=== PATIENT | male | born 1960 | race Caucasian/White ===

== ENCOUNTER 2021-11-29 02:55 | Emergency (ER) | payer MEDICARE ==
[2021-11-29 03:05] VITALS: RESP 18
--- NOTE | 2021-11-29 03:05 | ED ---
Chest Pain HPI - General Stated Complaint: Chest pain Time Seen by Provider: 11/29/21 02:56 Source: RN notes reviewed, old records reviewed Mode of arrival: EMS Limitations: no limitations - History of Present Illness Initial Comments: This is a 61-year-old male presenting with significant distress. Patient's main complaints relating to abdominal pain chest pain with a sudden onset of severe shortness of breath this shortness of breath cause patient to have some significant pain throughout his entire body. Pain is been episodic since it began but is currently improved. Patient is very emotional during history taking tearful a significant amount of the time. Currently remains asymptomatic MD Complaint: chest pain, other (She significant shortness of breath starting tonight) -: hour(s) Onset: during rest, awoke with symptoms Pain Location: substernal, epigastric Severity: moderate Severity scale (1-10): 6 Quality: sharp Consistency: intermittent Improves With: nothing Worsens With: nothing Context: recent surgery, trauma/injury Anginal Symptoms: dyspnea, sense of impending doom Other Symptoms: palpitations Treatments Prior to Arrival: none - Related Data Allergies Allergy/AdvReac Type Severity Reaction Status Date / Time No Known Allergies Allergy Verified 11/29/21 04:32 Review of Systems ROS Statement: Those systems with pertinent positive or pertinent negative responses have been documented in the HPI. ROS Other: All systems not noted in ROS Statement are negative. EKG Findings - EKG Comments: EKG Findings:: EKG is sinus rhythm 95 IA 176 QRS 86 QTc 409 General Exam General appearance: alert, anxious Head exam: Present: atraumatic, normocephalic, normal inspection Eye exam: Present: normal appearance, PERRL, EOMI. Absent: scleral icterus, conjunctival injection, periorbital swelling ENT exam: Present: normal exam, mucous membranes moist Neck exam: Present: normal inspection. Absent: tenderness, meningismus, lymphadenopathy Respiratory exam: Present: normal lung sounds bilaterally. Absent: respiratory distress, wheezes, rales, rhonchi, stridor Cardiovascular Exam: Present: normal rhythm, tachycardia, normal heart sounds. Absent: systolic murmur, diastolic murmur, rubs, gallop, clicks GI/Abdominal exam: Present: soft, normal bowel sounds. Absent: distended, tenderness, guarding, rebound, rigid Extremities exam: Present: normal inspection, full ROM, normal capillary refill. Absent: tenderness, pedal edema, joint swelling, calf tenderness Back exam: Present: normal inspection Neurological exam: Present: alert, oriented X3, CN II-XII intact Psychiatric exam: Present: normal affect, normal mood Skin exam: Present: warm, dry, intact, normal color. Absent: rash Course Vital Signs 11/29/21 11/29/21 02:56 06:34 Pulse Rate 107 H 86 Respiratory 18 18 Rate Blood Pressure 113/88 107/82 O2 Sat by Pulse 95 96 Oximetry - Reevaluation(s) Reevaluation #1: 11/29/21 05:45 Medical record is reviewed Reevaluation #2: 11/29/21 05:45 Patient has no recurrent events here in the ER A patient is informed results questions answered and is okay for discharge Chest Pain MDM - MDM 61 male to the emergency department for evaluation. Patient presents today for evaluation of likely medication reaction. Patient has normal studies. Patient can be discharged home Disposition Clinical Impression: Abdominal pain, Medication reaction Disposition: HOME SELF-CARE Condition: Good Instructions (If sedation given, give patient instructions): Tamsulosin (By mouth), Abdominal Pain (ED) Is patient prescribed a controlled substance at d/c from ED?: No Referrals: Anthony Robin DO [Primary Care Provider] - 1-2 days
--- NOTE | 2021-11-29 03:21 | XR ---
EXAMINATION TYPE: XR chest 1V DATE OF EXAM: 11/29/2021 COMPARISON: NONE HISTORY: Weakness TECHNIQUE: 2 views FINDINGS: There is coarsening of interstitial markings in the lower lung pickett. There is no heart fa ilure. There is minimal pleural reaction lateral right lung base. There are no hilar masses. IMPRESSION: Pleural reaction or fluid at the right lung base. No heart failure.
[2021-11-29 03:48] LABS: Basophils # (A) 0.1 k/uL (0-0.2); Basophils % (A) 1 %; Eosinophils # (A) 0.2 k/uL (0-0.7); Eosinophils % (A) 2 %; HGB 15.1 gm/dL (13.0-17.5); Lymphocytes # (A) 1.4 k/uL (1.0-4.8); Lymphocytes % (A) 19 %; MCH 32.3 pg (25.0-35.0); MCHC 32.7 g/dL (31.0-37.0); MCV 98.7 fL (80.0-100.0); Mean Platelet Volume 7.8; Monocytes # (A) 0.6 k/uL (0-1.0); Monocytes % (A) 8 %; Neutrophils # (A) 5.3 k/uL (1.3-7.7); Neutrophils % (A) 69 %; Platelet Count 206 k/uL (150-450); RBC 4.66 m/uL (4.30-5.90); RDW 12.9 % (11.5-15.5); WBC 7.6 k/uL (3.8-10.6)
[2021-11-29 03:59] LABS: ALT 45 U/L (4-49); AST 30 U/L (17-59); African American GFR (CKD) >90 (>60 ml/min/1.73 sqM); Alkaline Phosphatase 99 U/L (38-126); Anion Gap 11 mmol/L; Blood Urea Nitrogen 19 mg/dL (9-20); Calcium 9.1 mg/dL (8.4-10.2); Carbon Dioxide 21 mmol/L (22-30); Chloride 102 mmol/L (98-107); Glucose 142 mg/dL (74-99); Magnesium 1.9 mg/dL (1.6-2.3); Non-African American GFR(CKD) 83 (>60 ml/min/1.73 sqM); Phosphorus 3.8 mg/dL (2.5-4.5); Potassium 4.3 mmol/L (3.5-5.1); Sodium 134 mmol/L (137-145); Total Bilirubin 0.6 mg/dL (0.2-1.3); Total Protein 6.9 g/dL (6.3-8.2)
[2021-11-29 04:09] LABS: INR 0.9 (<1.2); Prothrombin Time 9.8 sec (9.0-12.0)
[2021-11-29 04:21] LABS: Partial Thromboplastin Time 19.6 sec (22.0-30.0)
--- NOTE | 2021-11-29 06:03 | CT ---
EXAMINATION TYPE: CT angio chest DATE OF EXAM: 11/29/2021 COMPARISON: None HISTORY: Chest pain CT DLP: 3315.5 mGycm Automated exposure control for dose reduction was used. CONTRAST: Performed with IV Contrast, patient injected with 100 mL of Isovue 370. Images obtained from the thoracic inlet to the diaphragm without IV contrast. There are 3-D post proc essed images. There is some patchy reticular interstitial density in the right lung. There is no pulmonary mass. Th ere is pleural thickening and calcification right lower lobe. Heart size is normal. There is no peric ardial effusion. There is 4.5 cm aneurysm of the root of the ascending aorta. There is no dissection. There is normal contrast opacification of the pulmonary arteries. There are no filling defects. There is no mediastinal adenopathy. There is some spurring in the thoracic spine. There is no compression fracture. Sternum is intact. Up per abdominal soft tissues are intact. IMPRESSION: No evidence of pulmonary embolism. Pleural and pulmonary scarring on the right side with pleural calc ification. Mild aneurysm of the ascending aorta. No suspicious pulmonary mass.
--- NOTE | 2021-11-29 06:06 | CT ---
EXAMINATION TYPE: CT abdomen pelvis w con DATE OF EXAM: 11/29/2021 COMPARISON: None HISTORY: CHest pain CT DLP: 3315.5 mGycm Automated exposure control for dose reduction was used. CONTRAST: Performed with IV Contrast, patient injected with 100 mL of Isovue 370. Images obtained from the diaphragm to the floor the pelvis with IV contrast. There is some pleural thickening and calcification at the right lung base. Heart size is normal. Ther e is no pericardial effusion. Liver shows no focal defect. Gallbladder appears normal. There is no pancreatic mass. There are calci fied small splenic granulomata. Stomach is intact. There is no adrenal mass. There is 3 cm cortical cyst upper pole left kidney. There is no hydronephro sis. Delayed images show normal renal excretion. There is no retroperitoneal adenopathy. Bladder dist ends smoothly. There is no inguinal hernia. There is no free fluid in the pelvis. Appendix is posterior and appears normal. There is no mesenteric edema. There is no ascites or free a ir. There is no bowel obstruction. Lumbar vertebrae have normal alignment. Posterior elements are int act. There is vacuum disc at L5-S1. Bony pelvis is intact. The hip joints are intact. There are a few sigmoid diverticula. There is no diverticulitis. IMPRESSION: No acute abnormality in the abdomen and pelvis. Normal appendix.
[2021-11-29 06:36] VITALS: BP 107/82; PULSE 86
== END 2021-11-29 06:35 | disposition home or self-care (01) ==
LOC: EC 02:55
DX: R10.13 Epigastric pain (principal); R07.9 Chest pain, unspecified; R06.02 Shortness of breath; T50.905A Adverse effect of unspecified drugs, medicaments and biological substances, initial encounter
CPT/HCPCS: 36415; 93005; 85379; 83880; 80053; 83735; 84100; 84484; 85025; 85610; 85730; 71045; 71275; 74177; 99285; Q9967